=== PATIENT | male | born 1975 | race Caucasian/White ===

== ENCOUNTER 2018-06-30 21:34 | Emergency (ER) | payer OTHER ==
[2018-06-30 21:54] VITALS: TEMP 98.6
--- NOTE | 2018-06-30 23:15 | CT ---
EXAMINATION TYPE: CT abdomen pelvis w con DATE OF EXAM: 06/30/2018 COMPARISON: None HISTORY: Epigastric pain following heavy lifting. CT DLP: 1080 mGycm Automated exposure control for dose reduction was used. TECHNIQUE: Helical acquisition of images was performed from the lung bases through the pelvis. CONTRAST: Performed without Oral Contrast and with IV Contrast, patient injected with 100ml mL of Isovue 300. FINDINGS: Lung bases are clear of consolidation. There is no pleural effusion. Heart size is normal. There is n o pericardial effusion. There is 1 cm cyst in the inferior right lobe of the liver. Gallbladder appea rs normal. Spleen appears normal. There is no pancreatic mass. Bile ducts are not dilated. There is no adrenal mass. Kidneys show satisfactory contrast opacification. There is no hydronephrosi s. Ureters are not dilated. There is no retroperitoneal adenopathy. Appendix appears normal. There is no ascites. Bladder distends smoothly. There is no inguinal hernia. There is no evidence of a pelvic mass. I see no intestinal wall thickening. There are no dilated loops. There is no mesenteric edema or adenopathy. The bony pelvis is intact. Lumbar spine appears intact. T here is mild spurring in the lumbar spine. There is small umbilical hernia contains fat. IMPRESSION: Negative CT scan abdomen and pelvis. Normal appendix. IMPRESSION:
--- NOTE | 2018-06-30 23:50 | ED ---
General Adult HPI - General Chief complaint: Abdominal Pain Stated complaint: hernia Time Seen by Provider: 06/30/18 22:07 Source: patient, RN notes reviewed Mode of arrival: ambulatory Limitations: no limitations - History of Present Illness Initial comments: 42-year-old male presents to the emergency department for a chief complaint of left lower quadrant pain times one day. Patient states he has a history of a hernia in the left lower abdomen. He states he has known about this for one year. 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 Patient states the pain has much improved at this time but he still does have mild pain. He is passing gas without difficulty. He states he has an appointment with a surgeon tomorrow morning but he wants to make sure nothing acute was occurring. Patient has no other complaints at this time including shortness of breath, chest pain, nausea or vomiting, headache, or visual changes. - Related Data Home Medications Medication Instructions Recorded Confirmed No Known Home Medications 06/30/18 06/30/18 Allergies Allergy/AdvReac Type Severity Reaction Status Date / Time amoxicillin Allergy Nausea & Verified 06/30/18 21:54 Vomiting Review of Systems ROS Statement: Those systems with pertinent positive or pertinent negative responses have been documented in the HPI. ROS Other: All systems not noted in ROS Statement are negative. Past Medical History Additional Past Medical History / Comment(s): hernia History of Any Multi-Drug Resistant Organisms: None Reported Past Surgical History: Hernia Repair Past Psychological History: No Psychological Hx Reported Smoking Status: Current every day smoker Past Alcohol Use History: Occasional Past Drug Use History: None Reported General Exam Limitations: no limitations General appearance: alert, in no apparent distress Head exam: Present: atraumatic, normocephalic, normal inspection Eye exam: Present: normal appearance, PERRL, EOMI. Absent: scleral icterus, conjunctival injection, periorbital swelling ENT exam: Present: normal exam, mucous membranes moist Neck exam: Present: normal inspection, full ROM. Absent: tenderness, meningismus, lymphadenopathy Respiratory exam: Present: normal lung sounds bilaterally. Absent: respiratory distress, wheezes, rales, rhonchi, stridor Cardiovascular Exam: Present: regular rate, normal rhythm, normal heart sounds. Absent: systolic murmur, diastolic murmur, rubs, gallop, clicks GI/Abdominal exam: Present: soft, tenderness (minimal tenderness LLQ, no palpable defect or buldge noted), normal bowel sounds. Absent: distended, guarding, rebound, rigid Neurological exam: Present: alert, oriented X3, CN II-XII intact Psychiatric exam: Present: normal affect, normal mood Course Vital Signs 06/30/18 21:49 Temperature 98.6 F Pulse Rate 83 Respiratory 20 Rate Blood Pressure 156/89 O2 Sat by Pulse 97 Oximetry Medical Decision Making - Medical Decision Making 42-year-old male presents to the emergency department for a chief complaint of left lower quadrant abdominal pain times one day. Patient has a history of a hernia and was lifting a patient and felt a sudden pain in the area. Patient states the pain is much improved at this time but is still mildly irritating. He describes it as a dull pain. On exam patient has minimal tenderness in the left lower quadrant without evidence of defect or bulge. CT shows a negative CAT scan of the abdomen and pelvis. There is no inguinal hernia present at this time. Patient has an appointment with a general surgeon tomorrow morning. He states at this time he would like to follow-up with him. Patient will be discharged home. He was educated to return here if he has any worsening symptoms including severe sudden pain. Instructions were given both in writing and verbally. Patient voices understanding of this plan of care. Discussed with Dr. Mcmullen Disposition Clinical Impression: Abdominal pain Disposition: HOME SELF-CARE Condition: Good Instructions: Inguinal Hernia (ED), Abdominal Pain (ED) Additional Instructions: Please take Motrin and Tylenol for pain. Please follow-up with Gen. surgery at your appointment tomorrow. Please return here to the emergency department if you have any worsening symptoms including severe sudden pain. Is patient prescribed a controlled substance at d/c from ED?: No Referrals: Franc Jain MD [Medical Doctor] - 1-2 days Time of Disposition: 23:49
[2018-07-01 00:11] VITALS: BP 135/74; PULSE 68; RESP 16
== END 2018-07-01 00:03 | disposition home or self-care (01) ==
LOC: EC 21:34
DX: R10.32 Left lower quadrant pain (principal); F17.200 Nicotine dependence, unspecified, uncomplicated; Z88.0 Allergy status to penicillin
CPT/HCPCS: 74177; 99284; Q9967

== ENCOUNTER 2021-01-31 22:28 | Emergency (ER) | payer OTHER ==
[2021-01-31 22:38] VITALS: BP 134/87; PULSE 94; RESP 18; TEMP 98.3
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
== END 2021-01-31 22:56 | disposition home or self-care (01) ==
LOC: EC 22:28
DX: Z02.89 Encounter for other administrative examinations (principal); V89.2XXA Person injured in unspecified motor-vehicle accident, traffic, initial encounter; Y99.0 Civilian activity done for income or pay
CPT/HCPCS: 99281